=== PATIENT | male | born 2000 | race Caucasian/White ===

== ENCOUNTER 2024-06-27 18:02 | Emergency (ER) | payer SELFPAY ==
[2024-06-27 18:14] VITALS: BP 127/80; PULSE 66; RESP 20; TEMP 98.4; BMI 22.4
[2024-06-27 18:54] LABS: BASO % 0.6 % (0-2.0); HEMATOCRIT 48.5 % (35.4-49); HEMOGLOBIN 17.1 GM/dL (11.7-16.9); LYMPH % 20.7 % (8-40); MCH 31.1 pg (25.7-33.7); MCHC 35.3 g/dl (32.0-35.9); MEAN CELL VOLUME 87.9 fl (80-96); MEAN PLT VOLUME 7.2 fl (7.5-11.1); MONO % 8.9 % (3.8-10.2); NEUT % 67.8 % (42.8-82.8); PLATELET COUNT 360 10^3/uL (134-434); RBC 5.52 M/mm3 (4.00-5.60); RDW 13.4 % (11.9-15.9); WHITE BLOOD COUNT 8.5 K/mm3 (4.0-10.0)
[2024-06-27 18:56] LABS: URINE APPEARANCE CLEAR; URINE BILIRUBIN NEGATIVE (NEGATIVE); URINE COLOR YELLOW; URINE GLUCOSE (UA) NEGATIVE (NEGATIVE); URINE KETONE TRACE (NEGATIVE); URINE LEUK ESTERASE NEGATIVE (NEGATIVE); URINE NITRITE NEGATIVE (NEGATIVE); URINE PROTEIN NEGATIVE (NEGATIVE)
[2024-06-27 19:17] LABS: POTASSIUM 4.1 mmol/L (3.5-5.1)
[2024-06-27 19:19] LABS: ALBUMIN 4.1 g/dl (3.4-5.0); BLOOD UREA NITROGEN 14.4 mg/dL (7-18); CALCIUM 9.4 mg/dL (8.5-10.1)
[2024-06-27 19:22] LABS: CREATININE 0.9 mg/dL (0.55-1.3)
[2024-06-27 19:24] LABS: BILIRUBIN,TOTAL 1.2 mg/dL (0.2-1); TOT PROT 7.8 g/dl (6.4-8.2)
[2024-06-27] MEDS: SODIUM CHLORIDE 0.9% 500 ML INFUS.BAG IV ONE (20:01)
[2024-06-27] MEDS ORDERED: valACYclovir HCL 500 MG TABLET (FP) ONE (20:29)
[2024-06-27] MEDS: valACYclovir HCL 500 MG TABLET (FP) PO ONE (20:33)
== END 2024-06-27 20:49 | disposition home or self-care (01) ==
LOC: JER 18:02
DX: N50.811 Right testicular pain (principal)
CPT/HCPCS: 36415; 76870-TC; 80053; 81003; 85025; 87086; 87491; 87591; 99284-25